=== PATIENT | male | born 1945 | race Asian ===

== ENCOUNTER 2018-04-05 08:16 | Day surgery (SDC) | payer MEDICARE, OTHER | END 2018-04-05 14:23 | disposition home or self-care (01) | LOC: GIL 08:16 | DX: R19.4 Change in bowel habit (principal); D12.3 Benign neoplasm of transverse colon; K57.90 Diverticulosis of intestine, part unspecified, without perforation or abscess without bleeding; E11.9 Type 2 diabetes mellitus without complications; I10 Essential (primary) hypertension; Z85.038 Personal history of other malignant neoplasm of large intestine | CPT/HCPCS: 44389; 82962; 88305 ==

== ENCOUNTER 2018-11-25 12:46 | Inpatient (IN) | payer MEDICARE, OTHER ==
[2018-11-25] MEDS: DILTIAZEM-D5W 125MG/125ML DRIP 125 ML IV (13:08)
[2018-11-25] MEDS: DILTIAZEM 25 MG INJ IV (13:22)
[2018-11-25] MEDS: ENOXAPARIN 40 MG/0.4 ML SYG SC (13:22)
[2018-11-25] MEDS ORDERED: ONDANSETRON 4 MG INJ IV ×2 (13:30→20:30)
[2018-11-25] MEDS ORDERED: ACETAMINOPHEN 325 MG TAB PO ×2 (13:30→20:30)
[2018-11-25 13:35] LABS: ADD MAN DIFF? NO
[2018-11-25 13:36] LABS: WHITE BLOOD COUNT 5.3 10^3/ul (4.8-10.8)
[2018-11-25 13:36] LABS: BASOPHILS % 0.8 % (0.0-2.0); EOSINOPHILS # 0.1 10^3/ul (0.0-0.5); EOSINOPHILS % 2.3 % (0.0-7.0); HEMATOCRIT 46.6 % (42.0-52.0); HEMOGLOBIN 15.2 g/dl (14.0-18.0); LYMPHOCYTES # 1.6 10^3/ul (0.8-2.9); LYMPHOCYTES % 30.1 % (15.0-51.0); MEAN CORPUSCULAR HEMOGLOBIN 30.3 pg (29.0-33.0); MEAN CORPUSCULAR HGB CONC 32.6 g/dl (32.0-37.0); MEAN CORPUSCULAR VOLUME 92.8 fl (82.0-101.0); MEAN PLATELET VOLUME 9.2 fl (7.4-10.4); MONOCYTE # 0.4 10^3/ul (0.3-0.9); NEUTROPHIL # 3.2 10^3/ul (1.6-7.5); NEUTROPHILS % 59.4 % (39.0-77.0); PLATELET COUNT 225 10^3/UL (140-415); RED BLOOD COUNT 5.02 10^6/ul (4.70-6.10); RED CELL DISTRIBUTION WIDTH 12.4 % (11.5-14.5)
[2018-11-25 13:56] LABS: INR 0.89; PROTIME 12.1 Sec (11.9-14.9); PT RATIO 0.9
[2018-11-25 13:57] LABS: ANION GAP 12 (5-13); BLOOD UREA NITROGEN 23 mg/dl (7-20); CALCIUM 9.9 mg/dl (8.4-10.2); CARBON DIOXIDE 24 mmol/L (21-31); CHLORIDE 105 mmol/L (97-110); GLUCOSE 94 mg/dl (70-220); POTASSIUM 4.3 mmol/L (3.5-5.1); SODIUM 141 mmol/L (135-144)
[2018-11-25 14:09] LABS: B-TYPE NATRIURETIC PEPTIDE 95 PG/ML (0-125); TROPONIN-I < 0.012 ng/ml (0.000-0.120)
[2018-11-25 14:25] LABS: FREE T4 (FREE THYROXINE) 0.95 ng/dl (0.78-2.44)
[2018-11-25] MEDS: ASPIRIN 81 MG TAB PO (14:42)
[2018-11-25] MEDS: DILTIAZEM (CD) 120 MG CAP PO ×2 (14:43→20:57)
[2018-11-25] MEDS: SOD CHLORIDE 0.9% 1,000 ML IV (14:44)
[2018-11-25] MEDS: SOD CHLORIDE 0.9% 250 ML IV (14:57)
[2018-11-25 20:11] LABS: CREATINE KINASE 83 IU/L (23-200)
[2018-11-25 20:22] LABS: CK INDEX 0.9; CK-MB 0.71 ng/ml (0.0-2.4); TROPONIN-I < 0.012 ng/ml (0.000-0.120)
[2018-11-25] MEDS ORDERED: HYDROCODONE/APAP (5/325) TAB PO (20:30)
[2018-11-25] MEDS: APIXABAN 5 MG TABLET PO (20:57)
[2018-11-25] MEDS ORDERED: DEXTROSE 50% 50 ML SYRINGE IV ×2 (21:00)
[2018-11-25] MEDS ORDERED: GLUCOSE GEL 15 GRAM TUBE BUCCAL (21:00)
[2018-11-25] MEDS ORDERED: GLUCOSE GEL 15 GRAM TUBE PO ×2 (21:00)
[2018-11-25] MEDS ORDERED: GLUCAGON 1 MG INJ IM (21:00)
[2018-11-25] MEDS: TAMSULOSIN (SR) 0.4 MG CAP PO (22:40)
[2018-11-26 02:27] LABS: CREATINE KINASE 84 IU/L (23-200)
[2018-11-26 02:38] LABS: CK INDEX 0.8; CK-MB 0.65 ng/ml (0.0-2.4); TROPONIN-I < 0.012 ng/ml (0.000-0.120)
[2018-11-26 05:53] LABS: ALANINE AMINOTRANSFERASE 20 IU/L (13-69); ALBUMIN 3.8 g/dl (3.3-4.9); ALBUMIN/GLOBULIN RATIO 1.35; ALKALINE PHOSPHATASE 50 IU/L (42-121); ANION GAP 9 (5-13); ASPARTATE AMINO TRANSFERASE 23 IU/L (15-46); BILIRUBIN,INDIRECT 0.2 mg/dl (0-1.1); BILIRUBIN,TOTAL 0.2 mg/dl (0.2-1.3); BLOOD UREA NITROGEN 20 mg/dl (7-20); CALCIUM 8.8 mg/dl (8.4-10.2); CARBON DIOXIDE 23 mmol/L (21-31); CHLORIDE 108 mmol/L (97-110); CREATININE 1.08 mg/dl (0.61-1.24); GLUCOSE 104 mg/dl (70-220); SODIUM 140 mmol/L (135-144); TOTAL PROTEIN 6.6 g/dl (6.1-8.1)
[2018-11-26 06:00] LABS: CHOL/HDL RATIO 1.9 RATIO; CHOLESTEROL 102 mg/dl (100-200); HDL CHOLESTEROL 52 mg/dl (31-75); LDL CHOLESTEROL,CALCULATED 33 mg/dl; TRIGLYCERIDES 83 mg/dl (0-149)
[2018-11-26] MEDS: INSULIN ASPART [NOVOLOG] 3 ML PEN SC ×3 (07:00→17:30)
[2018-11-26] MEDS: metFORMIN 500 MG TAB PO ×2 (07:39→17:08)
[2018-11-26] MEDS: DILTIAZEM (CD) 120 MG CAP PO (08:21)
[2018-11-26] MEDS: LISINOPRIL 20 MG TAB PO (08:21)
[2018-11-26] MEDS: APIXABAN 5 MG TABLET PO ×2 (08:21→20:04)
[2018-11-26] MEDS: AMIODARONE 150MG/D5W BOLUS 100 ML IV (18:45)
[2018-11-26] MEDS: TAMSULOSIN (SR) 0.4 MG CAP PO (20:04)
[2018-11-26] MEDS: DIPHENHYDRAMINE 50 MG CAP PO (20:04)
[2018-11-26] MEDS ORDERED: DILTIAZEM (SR) 90 MG CAP PO (21:00)
[2018-11-26] MEDS: AMIODARONE 900 MG in DEXTROSE 5% 482 ML IV (22:08)
[2018-11-27] MEDS: INSULIN ASPART [NOVOLOG] 3 ML PEN SC ×3 (06:19→17:30)
[2018-11-27] MEDS: metFORMIN 500 MG TAB PO ×2 (07:32→17:37)
[2018-11-27] MEDS: LISINOPRIL 20 MG TAB PO (08:32)
[2018-11-27] MEDS: APIXABAN 5 MG TABLET PO ×2 (08:32→20:30)
[2018-11-27] MEDS: TAMSULOSIN (SR) 0.4 MG CAP PO (20:30)
[2018-11-27] MEDS: hydrALAzine 20 MG INJ IV (20:35)
[2018-11-28] MEDS: SOD CHLORIDE 0.9% 500 ML IV (01:38)
[2018-11-28] MEDS: INSULIN ASPART [NOVOLOG] 3 ML PEN SC ×3 (06:47→17:11)
[2018-11-28] MEDS: APIXABAN 5 MG TABLET PO ×2 (08:08→21:16)
[2018-11-28] MEDS: metFORMIN 500 MG TAB PO ×2 (08:08→17:11)
[2018-11-28] MEDS: LISINOPRIL 20 MG TAB PO (08:09)
[2018-11-28] MEDS: AMIODARONE 200 MG TAB PO (08:09)
[2018-11-28] MEDS: TAMSULOSIN (SR) 0.4 MG CAP PO (21:16)
[2018-11-28] MEDS: hydrALAzine 20 MG INJ IV (22:56)
[2018-11-29] MEDS: ZOLPIDEM 5 MG TAB PO (01:31)
[2018-11-29 05:39] LABS: ADD MAN DIFF? NO
[2018-11-29 05:48] LABS: WHITE BLOOD COUNT 5.8 10^3/ul (4.8-10.8)
[2018-11-29 05:48] LABS: BASOPHILS % 0.5 % (0.0-2.0); EOSINOPHILS # 0.2 10^3/ul (0.0-0.5); EOSINOPHILS % 3.3 % (0.0-7.0); HEMATOCRIT 43.1 % (42.0-52.0); HEMOGLOBIN 14.8 g/dl (14.0-18.0); LYMPHOCYTES # 1.4 10^3/ul (0.8-2.9); LYMPHOCYTES % 24.6 % (15.0-51.0); MEAN CORPUSCULAR HEMOGLOBIN 30.6 pg (29.0-33.0); MEAN CORPUSCULAR HGB CONC 34.3 g/dl (32.0-37.0); MEAN CORPUSCULAR VOLUME 89.2 fl (82.0-101.0); MEAN PLATELET VOLUME 8.8 fl (7.4-10.4); MONOCYTE # 0.4 10^3/ul (0.3-0.9); MONOCYTES % 7.6 % (0.0-11.0); NEUTROPHIL # 3.7 10^3/ul (1.6-7.5); NEUTROPHILS % 63.5 % (39.0-77.0); PLATELET COUNT 214 10^3/UL (140-415); RED BLOOD COUNT 4.83 10^6/ul (4.70-6.10); RED CELL DISTRIBUTION WIDTH 12.3 % (11.5-14.5)
[2018-11-29 06:16] LABS: ANION GAP 11 (5-13); BLOOD UREA NITROGEN 25 mg/dl (7-20); CALCIUM 9.4 mg/dl (8.4-10.2); CARBON DIOXIDE 25 mmol/L (21-31); CHLORIDE 105 mmol/L (97-110); GLUCOSE 99 mg/dl (70-220); POTASSIUM 3.9 mmol/L (3.5-5.1); SODIUM 141 mmol/L (135-144)
[2018-11-29] MEDS: INSULIN ASPART [NOVOLOG] 3 ML PEN SC ×2 (07:00→11:30)
[2018-11-29] MEDS: APIXABAN 5 MG TABLET PO (08:07)
[2018-11-29] MEDS: AMIODARONE 200 MG TAB PO (08:08)
[2018-11-29] MEDS: metFORMIN 500 MG TAB PO (08:08)
[2018-11-29] MEDS: LISINOPRIL 20 MG TAB PO (08:12)
== END 2018-11-29 16:45 | disposition home or self-care (01) | DRG 310 ==
LOC: E/R 12:46 → 6WM 13:14
PROVIDERS: Internal Medicine
DX: I48.92 Unspecified atrial flutter (principal); E11.9 Type 2 diabetes mellitus without complications; I10 Essential (primary) hypertension; N40.0 Benign prostatic hyperplasia without lower urinary tract symptoms; E78.5 Hyperlipidemia, unspecified; I44.0 Atrioventricular block, first degree; Z93.3 Colostomy status; Z85.048 Personal history of other malignant neoplasm of rectum, rectosigmoid junction, and anus; Z79.84 Long term (current) use of oral hypoglycemic drugs; Z92.21 Personal history of antineoplastic chemotherapy; Z92.3 Personal history of irradiation
CPT/HCPCS: 36415; 71045; 80048; 80053; 80061; 82550; 82553; 82962; 83036; 83735; 83880; 84439; 84443; 84484; 85025; 85610; 93005; 93306; 99285-25